=== PATIENT | female | born 1945 | race Two or more races ===

== ENCOUNTER 2018-09-28 19:45 | Emergency (ER) | payer OTHER ==
[~2018-09-28] VITALS: Ht 157.5 cm; Wt 81.6 kg
[~2018-09-28 19:45] MED LIST: CIPRO500 MG PO; FLAGYL PO; TENORMIN100 MG PO; TRAMADOL HCL50 MG PO
[2018-09-29] MEDS ORDERED: PEPCID AC20 MG PO (00:46)
== END 2018-09-29 02:58 | disposition home or self-care (01) ==
LOC: ER 19:45
DX: R07.89 Other chest pain (principal)

== ENCOUNTER 2020-02-23 17:31 | Emergency (ER) | payer OTHER ==
[~2020-02-23] VITALS: Ht 157.5 cm; Wt 81.6 kg
[~2020-02-23 17:31] MED LIST changes: +PEPCID AC20 MG PO
[2020-02-23] MEDS ORDERED: NORFLEX100MG PO (19:46)
[2020-02-23] MEDS ORDERED: DICLOFENAC SODI75 MG PO (19:46)
== END 2020-02-23 20:13 | disposition home or self-care (01) ==
LOC: ER 17:31
DX: S00.03XA Contusion of scalp, initial encounter (principal); S20.221A Contusion of right back wall of thorax, initial encounter; R06.02 Shortness of breath; R53.1 Weakness; W18.09XA Striking against other object with subsequent fall, initial encounter; Y93.89 Activity, other specified; Y92.018 Other place in single-family (private) house as the place of occurrence of the external cause; Y99.8 Other external cause status

== ENCOUNTER 2020-09-15 08:56 | Inpatient (IN) | payer OTHER ==
[~2020-09-15] VITALS: Ht 157.5 cm; Wt 86.2 kg
[~2020-09-15 08:56] MED LIST changes: +DICLOFENAC SODI75 MG PO; +NORFLEX100MG PO
[2020-09-24] MEDS ORDERED: ELIQUIS5 MG PO (13:57)
[2020-09-24] MEDS ORDERED: PROTONIX40 MG PO (13:57)
[2020-09-24] MEDS ORDERED: TOPROL XL100 M1 PO (13:57)
[2020-09-24] MEDS ORDERED: LIPITOR40 MG PO (13:57)
[2020-09-24] MEDS ORDERED: AMOXICILLIN500 M1 PO (14:04)
== END 2020-09-24 15:37 | disposition home or self-care (01) | DRG 308 ==
LOC: ER 08:56 → ICU-2 17:47 → ICU 09-16 19:40 → MEDJ 09-22 18:19
PROVIDERS: ADMIT Internal Medicine; ATTEND Internal Medicine
PROC: BW28ZZZ Computerized Tomography (CT Scan) of Head (ICD-10-PCS; 2020-09-15)
PROC: B24BZZZ Ultrasonography of Heart with Aorta (ICD-10-PCS; principal; 2020-09-16)
PROC: BW28ZZZ Computerized Tomography (CT Scan) of Head (ICD-10-PCS; 2020-09-18)
DX: I48.20 Chronic atrial fibrillation, unspecified (principal); I63.89 Other cerebral infarction; Z20.822 Contact with and (suspected) exposure to COVID-19; I11.0 Hypertensive heart disease with heart failure; I50.9 Heart failure, unspecified; I27.29 Other secondary pulmonary hypertension; K59.00 Constipation, unspecified

== ENCOUNTER 2022-02-18 16:23 | Emergency (ER) | payer OTHER ==
[~2022-02-18] VITALS: Ht 157.5 cm; Wt 86.2 kg
[~2022-02-18 16:23] MED LIST changes: +AMOXICILLIN500 M1 PO; +ELIQUIS5 MG PO; +LIPITOR40 MG PO; +PROTONIX40 MG PO; +TOPROL XL100 M1 PO
[2022-02-18] MEDS ORDERED: IRBESARTAN300 MG PO (17:11)
[2022-02-18] MEDS ORDERED: CHLORTHALIDONE25 MG PO (17:11)
== END 2022-02-18 21:32 | disposition home or self-care (01) ==
LOC: ER 16:23
DX: I48.91 Unspecified atrial fibrillation (principal); I10 Essential (primary) hypertension

== ENCOUNTER 2022-02-25 06:09 | Inpatient (IN) | payer OTHER ==
[~2022-02-25] VITALS: Ht 157.5 cm; Wt 86.2 kg
[~2022-02-25 06:09] MED LIST changes: +CHLORTHALIDONE25 MG PO; +IRBESARTAN300 MG PO
[2022-02-25] MEDS ORDERED: HYDRODIURIL12.5 MG PO (06:35)
[2022-02-25] MEDS ORDERED: TOPROL XL100 M1 PO (06:35)
[2022-02-25] MEDS ORDERED: AMIODARONE HCL100 MG PO (06:36)
--- NOTE | 2022-02-25 06:42 | NUR ---
SE RECIBE PTE ALERTA Y ORIENTADA XE REFIERE SABADO PASADO POR DOLOR DE PECHO Y FUE A BAZAN CARDIOLOGO Y LUEGO DE VARIOS MARIANO VOLVIO CON LA MISMA SITUACION. SE DMITRY SIGNOS VITALES Y SE AYB EN ISSAC ESPERA.
--- NOTE | 2022-02-25 07:43 | NUR ---
PACIENTE ALERTA Y ORIENTADA POR KASSIE. SE COLOCA EN CAMA #16 AREA DE CHEST PAIN SE COLOCA MONITOR CARDIACO CON SATUROMETRO. SE ORIENTA DE TRATAMIENTO JOHN ORDEN MEDICA. REFIERE ENTENDER. SE CANALIZA, SE DMITRY MUESTRAS Y SE ADMINIS- MADDOX MEDICAMENTOS CON MEDIDAS ASEPTICAS CORRESPONDIENTES. SE MIDEN Y DOCUMENTAN S/V. BARANDAS ELEVADAS POR BAZAN SEGURIDAD. SE MONITOREA POR CAMBIOS SIGNIFICATI- BRISA.
--- NOTE | 2022-02-25 11:12 | NUR ---
SE NOTIFICA A DR KOLB A LAS 9:55AM PACIENTE ANSIOSA Y CON PULSO EN 110. MARJORIE EVALUA PACIENTE Y ORDENA A LAS 10:10 AM CARDIZEM 15 MG SE ADMINISTRAN CON MEDIDAS ASEPTICAS CORRESPONDIENTES. ESTA AUSCULTA PACIENTE QUE REFIERE DESEA IRSE SE LE ORIENTA DE CONDICION MEDICA E IMPORTANCIA DE TRATAMIENTO. MARJORIE ORDENA LAXIS 40 A LAS 10:15 AM Y SE ADMINISTRA CON MEDIDAS ASEPTICAS CORRES- PONDIENTES. SE COLOCA CANULA NASAL JOHN ORDEN MEDICA, SE ORIENTA DE SONDA URINARIA Y PACIENTE REFIERE NO DESEA SE COLOQUE LA MISMA. SE CONTINUA MONITO- REANDO POR CAMBIOS SIGNIFICATIVOS. BARANDAS ELEVADAS POR BAZAN SEGURIDAD.
--- NOTE | 2022-02-25 13:27 | NUR ---
PACIENTE ALERTA Y ORIENTADA POR KASSIE. SE COLOCA LEO Y SE RE ORIENTA DE IMPORTANCIA DE USO DE DURANT, REFIERE ENTENDER. SE COLOCA SONDA URINARIA CON MEDIDAS ASEPTICAS CORRESPONDIENTES. DURANT PATENTE A GRAVEDAD DRENANDO ORINA AMARILLO LAURYN [address] AL MOMENTO. SE CANALIZA POR CUARTA OCASION DEBIDO A QUE SE DESCANALIZABA AL UTILIZAR LEO. AREAS DE VENO PUNCION LIBRES DE EDEMA Y/O ERITEMA. BARANDAS ELEVADAS POR BAZAN SEGURIDAD. SE MONITOREA POR CAMBIOS SIGNIFICATIVOS.
--- NOTE | 2022-02-25 15:13 | NUR ---
SE RECIBE PTE ALERTA Y ORIENTADA X3 CON FAMILIARES. PTE CON DOS VENOPUNCIONES LA ANGIO#20 Y RA ANGIO #22, AMBAS PATENTES AREAS MARIANNA DE EDEMA Y ERITEMA. PTE BAJANDO 0.9NSS @125ML/HR Y CORADRONE 33ML/HR. MR EDDY ENTREGA PTE Y ORIENTA SOBRE CAMBIO DE RATE DEL CORADRONE DE 33ML/HR A 16ML/HR A LAS 7PM EN EL VAUGHN DE LUIS. DR BRIAN HODGES VISITA PTE A LAS 3:00PM, INDICA QUE VA ADMITIR PTE. SE MICHAEL SV Y SE MANTIENE EN OBSERVACION. PTE EN JUNIE, CON BARANDAS ELEVADAS, EN EL NIVEL MAS BAJO Y CALDERON DE IDENTIFIACION POR PRECAUCION. PTE ESTABLE AL MOMENTO.
--- NOTE | 2022-02-25 17:03 | NUR ---
SE ADMINISTRA MEDICAMENTOS JOHN ORDEN MEDICA, SE ORIENTA PTE SOBRE LAS MISMAS LO CUAL REFIERE ENTENDER. REGISTERED NURSE HH CASE MANAGER BRANDI REALIZA EKG. SE MANTIENE EN OBSERVACION.
[2022-02-27] MEDS ORDERED: ELIQUIS5 MG PO (09:24)
[2022-02-27] MEDS ORDERED: AMIODARONE HCL200 MG PO (09:25)
[2022-02-27] MEDS ORDERED: LIPITOR40 MG PO (09:25)
[2022-02-27] MEDS ORDERED: IRBESARTAN300 MG PO (09:26)
[2022-02-27] MEDS ORDERED: TOPROL XL100 M1 PO (09:26)
[2022-02-27] MEDS ORDERED: PANTOPRAZOLE SO40 MG PO (09:27)
[2022-02-27] MEDS ORDERED: LASIX20 MG PO (09:27)
== END 2022-02-27 12:58 | disposition home or self-care (01) | DRG 308 ==
LOC: ER 06:09 → MEDI 16:02
PROVIDERS: ADMIT Internal Medicine; ATTEND Internal Medicine
PROC: 4A12X4Z Monitoring of Cardiac Electrical Activity, External Approach (ICD-10-PCS; principal; 2022-02-25)
PROC: B246ZZZ Ultrasonography of Right and Left Heart (ICD-10-PCS; 2022-02-25)
PROC: 3E0F7SF Introduction of Other Gas into Respiratory Tract, Via Natural or Artificial Opening (ICD-10-PCS; 2022-02-25)
DX: I48.0 Paroxysmal atrial fibrillation (principal); I50.33 Acute on chronic diastolic (congestive) heart failure; I13.0 Hypertensive heart and chronic kidney disease with heart failure and stage 1 through stage 4 chronic kidney disease, or unspecified chronic kidney disease; N18.2 Chronic kidney disease, stage 2 (mild); I49.8 Other specified cardiac arrhythmias; E66.9 Obesity, unspecified; Z20.822 Contact with and (suspected) exposure to COVID-19

== ENCOUNTER 2022-05-04 15:03 | Inpatient (IN) | payer OTHER ==
[~2022-05-04] VITALS: Ht 152.4 cm; Wt 86.2 kg
[~2022-05-04 15:03] MED LIST changes: +AMIODARONE HCL100 MG PO; +AMIODARONE HCL200 MG; +AMIODARONE HCL200 MG PO; +FUROSEMIDE20 MG; +HYDROCHLOROTH12.5 MG; +HYDRODIURIL12.5 MG PO; +IRBESARTAN-HCT1 EAC1 PO; +IRBESARTAN300 MG; +LASIX20 MG PO; +PANTOPRAZOLE SO40 MG; +PANTOPRAZOLE SO40 MG PO
[2022-05-04] MEDS ORDERED: SPIRIVA HANDIH18 MCG IH (15:19)
--- NOTE | 2022-05-04 15:22 | NUR ---
PACIENTE ALERTA Y ORIENTADA X3, REFIERE TENER DIFICULTAD PARA RESPIRAR EN LA NOCHES DESDE HACE KASSIE MARIANO. PACIENTE REFIERE QUE SIENTE LA NARIZ TAPADA. EN ADICION MENCIONA QUE JOHNSON DEJADO DE DONNA CIERTOS MEDICAMENTOS POR ORDEN DE BAZAN NEUMOLOGO. SE MONITOREAN VS Y SE UBICA EN ISSAC DE ESPERA
--- NOTE | 2022-05-04 17:32 | NUR ---
SE REALIZA EKG SE PRESENTA ADR. ABY. DR. JIANG REFIERE PASAR LA PTE PARA UNIDAD DE PECHO.
--- NOTE | 2022-05-04 18:35 | NUR ---
SE RECIBE PACIENTE EN AREA DE CRITICO SE CONECTA A MONITOR CARDIACO Y OXIMETRIA DE PULSO. SE REALIZA VENPUNCION #18 EN LA PATENTE Y MARIANNA DE EDEMA Y VENOPUNCION #18 EN RA PATENTE.SE REALIZAN MUESTRAS JOHN ORDEN MEDICA. SE COLOCA CANULA NASAL @3L.
--- NOTE | 2022-05-04 22:12 | NUR ---
SE MONITOREAN LAS PRESIONES MANUALES EN 152/104 SE NOTIFICA A Y PULSO MAYOR DE 150 . MARJORIE ORDENA SE DE CORDARONE 150/100 EN 10 MINUTOS. SE ADMINISTRA MEDICAMENTOS JOHN ORDEN.SE COLOCA DURANT CON EGRESO URINARIO DE 300ML.
--- NOTE | 2022-05-04 22:50 | NUR ---
SE NOTIFICA A SOBRE PULSO PACIENTE MARJORIE INDICA REDUCIR EL NIVEL DE CARDIZEM Y ADMINISTRAR LASIX. SE LLAMA A ROHENA TERAPIA RESPIRATORIA PARA VENTURY MASK 50%
== END 2022-05-09 21:21 | disposition home or self-care (01) | DRG 280 ==
LOC: ER 15:03 → ICU-2 23:08 → MEDJ 05-06 00:09 → MEDI 05-09 10:07
PROVIDERS: ADMIT Internal Medicine; ATTEND Internal Medicine
PROC: B246ZZZ Ultrasonography of Right and Left Heart (ICD-10-PCS; principal; 2022-05-04)
PROC: 4A12X4Z Monitoring of Cardiac Electrical Activity, External Approach (ICD-10-PCS; 2022-05-06)
PROC: 5A0935A Assistance with Respiratory Ventilation, Less than 24 Consecutive Hours, High Flow/Velocity Cannula (ICD-10-PCS; 2022-05-06)
DX: I21.4 Non-ST elevation (NSTEMI) myocardial infarction (principal); I50.33 Acute on chronic diastolic (congestive) heart failure; I13.0 Hypertensive heart and chronic kidney disease with heart failure and stage 1 through stage 4 chronic kidney disease, or unspecified chronic kidney disease; I48.20 Chronic atrial fibrillation, unspecified; N18.2 Chronic kidney disease, stage 2 (mild); E66.8 Other obesity; Z68.34 Body mass index [BMI] 34.0-34.9, adult; Z20.822 Contact with and (suspected) exposure to COVID-19

== ENCOUNTER → 2022-08-27 | Emergency (ER) | payer OTHER ==
[~2022-08-27] VITALS: Ht 157.5 cm; Wt 86.2 kg
[~2022-08-27] MED LIST changes: +ATACAND HCT 161 EACH PO; +BACTRIM 400-801 EACH PO; +CARDIZEM CD240 MG PO; +ELIQUIS2.5 MG PO; +SPIRIVA HANDIH18 MCG IH
== END | disposition home or self-care (01) ==
LOC: ER 10:26
DX: S80.12XA Contusion of left lower leg, initial encounter (principal); I11.9 Hypertensive heart disease without heart failure; I10 Essential (primary) hypertension; R60.0 Localized edema